=== PATIENT | male | born 1970 | race Caucasian/White ===

== ENCOUNTER 2016-09-08 20:25 | Emergency (ER) | payer OTHER | END 2016-09-08 23:08 | disposition home or self-care (01) | LOC: ER 20:25 | DX: S01.01XA Laceration without foreign body of scalp, initial encounter (principal); L08.9 Local infection of the skin and subcutaneous tissue, unspecified; M54.2 Cervicalgia; W11.XXXA Fall on and from ladder, initial encounter; Y93.H9 Activity, other involving exterior property and land maintenance, building and construction; Y92.007 Garden or yard of unspecified non-institutional (private) residence as the place of occurrence of the external cause; Z88.5 Allergy status to narcotic agent; F17.210 Nicotine dependence, cigarettes, uncomplicated | CPT/HCPCS: 70450; 72040; 87070; 87186; 99284-25 ==